=== PATIENT | female | born 1985 | race Caucasian/White ===

== ENCOUNTER → 2024-07-05 11:40 | Outpatient (BNVA) | payer MEDICAID, SELFPAY | PROVIDERS: Referring Provider Nurse Practitioner; Visit Provider Internal Medicine | DX: E11.9 Type 2 diabetes mellitus without complications (principal) | CPT/HCPCS: 36415; 80053; 80061; 81001; 82044; 83036 ==

== ENCOUNTER 2024-12-25 13:54 | Outpatient (CLI) | payer OTHER, MEDICAID, SELFPAY ==
--- NOTE | 2024-12-25 | MM_ITS ---
WS: [id number] DIAGNOSTIC BILATERAL DIGITAL BREAST TOMOSYNTHESIS MAMMOGRAPHY WITH CAD LEFT breast ultrasound, limited HISTORY: LEFT BREAST LUMP COMPARISON: None available. TECHNIQUE: Bilateral craniocaudad, mediolateral oblique, and mediolateral views are submitted with tomosynthesis and SM. Spot compression LEFT CC and MLO. Computer aided detection utilized. Breast composition: There are scattered areas of fibroglandular density. High density lobulated mass measures 1.8 x 2.1 x 2.4 cm in the mid LEFT breast, central and just medial to the nipple line. Mass estimated to be at 10:00. This does correspond to the palpable abnormality. No additional abnormality. LEFT breast ultrasound, limited. Hypoechoic mass with lobulated margins and no through transmission present at 11:00, 5 cm from the nipple. Mass measures 1.7 x 1.5 x 2.3 cm and corresponds to the mammographic abnormality. There is mild peripheral increased vascularity. MM/MM diag BI tomosynthesis [id number] IMPRESSION: BI-RADS: 4 - Suspicious Finding - Biopsy Should Be Considered. FOLLOW UP: Biopsy Recommended Ultrasound-guided biopsy recommended LEFT breast mass at 11:00. Notified Cathy Sanches at 12/25/2024 3:10 PM.
--- NOTE | 2024-12-25 14:12 | US_ITS ---
WS: [id number] DIAGNOSTIC BILATERAL DIGITAL BREAST TOMOSYNTHESIS MAMMOGRAPHY WITH CAD LEFT breast ultrasound, limited HISTORY: LEFT BREAST LUMP COMPARISON: None available. TECHNIQUE: Bilateral craniocaudad, mediolateral oblique, and mediolateral views are submitted with tomosynthesis and SM. Spot compression LEFT CC and MLO. Computer aided detection utilized. Breast composition: There are scattered areas of fibroglandular density. High density lobulated mass measures 1.8 x 2.1 x 2.4 cm in the mid LEFT breast, central and just medial to the nipple line. Mass estimated to be at 10:00. This does correspond to the palpable abnormality. No additional abnormality. LEFT breast ultrasound, limited. Hypoechoic mass with lobulated margins and no through transmission present at 11:00, 5 cm from the nipple. Mass measures 1.7 x 1.5 x 2.3 cm and corresponds to the mammographic abnormality. There is mild peripheral increased vascularity. US/US breast LT limited* [id number] IMPRESSION: BI-RADS: 4 - Suspicious Finding - Biopsy Should Be Considered. FOLLOW UP: Biopsy Recommended Ultrasound-guided biopsy recommended LEFT breast mass at 11:00. Notified Cathy Sanches at 12/25/2024 3:10 PM.
== END 2024-12-25 13:55 | disposition home or self-care (01) ==
LOC: RAD 13:57
PROVIDERS: PCP Nurse Practitioner Family; Visit Provider Nurse Practitioner Family
DX: N63.20 Unspecified lump in the left breast, unspecified quadrant (principal); S99.911A Unspecified injury of right ankle, initial encounter; X58.XXXA Exposure to other specified factors, initial encounter; M79.671 Pain in right foot; R92.323 Mammographic fibroglandular density, bilateral breasts; N63.22 Unspecified lump in the left breast, upper inner quadrant
CPT/HCPCS: 73610; 73630; 76642; 77062; G0279

== ENCOUNTER 2025-01-23 12:30 | Outpatient (CLI) | payer OTHER, MEDICAID, SELFPAY ==
--- NOTE | 2025-01-23 12:38 | US_ITS ---
WS: [id number] ULTRASOUND-GUIDED LEFT BREAST BIOPSY HISTORY: MASS/LUMP IN L BREAST SEEN ON MAMMOGRAM COMPARISON: 12/25/2024 Procedure, risks and complications are explained to the patient. Medications are reviewed. Consent is obtained. The mass in the LEFT breast is localized with ultrasound. Mass localizes to 11:00, 5 cm from the nipple. Skin is cleansed with ChloraPrep and anesthetized with 1% buffered lidocaine. Small dermatome is made. Under sterile conditions mass is biopsied with a 14-gauge Achieve needle. Multiple core biopsies are performed. Material placed in formalin and sent to pathology for review. No complications encountered. Breast tissue marker ([place] ultrasound enhanced ribbon): Single. Patient left the radiology suite with no complications. Patient is instructed [place] [facility] [place] call with any concerns. US/[place] [id number] IMPRESSION: 1. Uncomplicated core needle biopsy LEFT breast mass at 11:00. 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 RECOMMENDATION: Follow-up ultrasound LEFT breast 6 months. Imaging and pathology findings are concordant. Recommend follow-up in 6 months. If this mass increases in size or becomes painful surgical excision may be a c onsideration due to its large size.
== END 2025-01-23 12:31 | disposition home or self-care (01) ==
PROVIDERS: PCP Nurse Practitioner Family; Visit Provider Nurse Practitioner Family
DX: R92.8 Other abnormal and inconclusive findings on diagnostic imaging of breast (principal); N64.89 Other specified disorders of breast
CPT/HCPCS: 19083; 88305

== ENCOUNTER 2025-03-18 16:52 | Emergency (ER) | payer OTHER, MEDICAID, SELFPAY ==
[2025-03-18 16:57] VITALS: BP 137/95; PULSE 99; RESP 17; TEMP 36.7; O2SAT 96; BMI 35.4
[2025-03-18 18:31] LABS: Basophils # 0.1 10^3/uL (0.0-0.1); Basophils % 0.7 %; Eosinophils # 0.1 10^3/uL (0.0-0.8); Eosinophils % 1.1 %; Hematocrit 37.9 % (36-47); Lymphocytes # 4.7 10^3/uL (0.8-4.8); Lymphocytes % 51.2 %; Mean Corpuscular HGB Conc 35.1 g/dL (30-55); Mean Corpuscular Hemoglobin 34.6 pg (27-33); Mean Corpuscular Volume 98.7 fl (85-98); Mean Platelet Volume 9.7 fL (7.4-10.4); Monocytes # 0.4 10^3/uL (0.2-0.9); Monocytes % 4.8 %; Neutrophils # 3.79 10^3/uL (1.8-7.7); Neutrophils % 41.8 %; Nucleated Red Blood Cells % 0 %; Platelet Count 314 10^3/cmm (157-399); Red Blood Count 3.84 10^6/uL (3.85-5.65); Red Cell Distribution Width 11.8 % (12.1-15.1); White Blood Count 9.08 10^3/uL (3.29-11.43)
[2025-03-18 18:46] LABS: HCG, Serum Qual Negative (Negative)
[2025-03-18 18:50] LABS: Alanine Aminotransferase 12 U/L (0-33); Albumin Level 4.4 g/dL (3.5-5.2); Alkaline Phosphatase 87 U/L (35-105); Anion Gap 17.2 (5-19); Aspartate Amino Transferase 15 U/L (0-32); Blood Urea Nitrogen 6 mg/dL (6-20); Calcium 9.2 mg/dL (8.5-10.5); Carbon Dioxide 26 mmol/L (22-29); Chloride 103 mmol/L (98-107); Creatinine Clr Calc Pharmacy 99.9447; Glomerular Filtration Rate 79.4 mL/min (90-130); Glucose 165 mg/dL (65-115); Lipase 17 U/L (13-60); Osmolality Calculated 295 mOsm/kg (285-295); Potassium 4.2 mmol/L (3.5-5.1); Sodium 142 mmol/L (136-145); Total Bilirubin 0.2 mg/dL (0.15-1.2); Total Protein 7.4 g/dL (6.6-8.7)
[2025-03-18 19:30] VITALS: BP 117/71; PULSE 71; O2SAT 96
--- NOTE | 2025-03-18 19:40 | CTR_ITS ---
PROCEDURE INFORMATION: Exam: CT Abdomen And Pelvis With Contrast Exam date and time: 03/18/2025 8:10 PM Age: 39 years old Clinical indication: Abdominal pain; Other: Hernia site; Prior surgery; Surgery date: 6+ months; Surgery type: Hernia repair x4; Additional info: Abd pain with hernia TECHNIQUE: Imaging protocol: Computed tomography of the abdomen and pelvis with contrast. Radiation optimization: All CT scans at this facility use at least one of these dose optimization techniques: automated exposure control; mA and/or kV adjustment per patient size (includes targeted exams where dose is matched to clinical indication); or iterative reconstruction. Contrast material: OMNI 350; Contrast volume: 100 ml; Contrast route: INTRAVENOUS (IV); COMPARISON: No relevant prior studies available. RADIATION DOSE METRICS: Total DLP (mGy-cm): 858.2 FINDINGS: Lungs: Lung bases are clear. No pleural effusion. Liver: Normal. No mass. Gallbladder and biliary ducts: Normal. No calcified stones. No ductal dilation. Pancreas: Normal. No ductal dilation. Spleen: Normal. No splenomegaly. Adrenal glands: Normal. No mass. Kidneys and ureters: Normal. No hydronephrosis. Stomach and bowel: A large hernia involves the upper anterior abdominal wall and contains transverse colon. I see no bowel distension. Appendix: No evidence of appendicitis. Intraperitoneal space: Unremarkable. No free air. No significant fluid collection. Vasculature: Unremarkable. No abdominal aortic aneurysm. Lymph nodes: Unremarkable. No enlarged lymph nodes. Urinary bladder: Unremarkable as visualized. Reproductive: Unremarkable as visualized. Bones/joints: Unremarkable. No acute fracture. Soft tissues: Unremarkable. CT/CT abdomen pelvis w con* [id number] IMPRESSION: 1. No acute findings. 2. Large anterior abdominal wall hernia containing transverse colon. No sign of incarceration or strangulation
[2025-03-18 19:46] LABS: Bilirubin Urine Negative (Negative); Blood Urine Negative (Negative); Glucose Urine UA Negative (Normal); Ketones Urine Negative (Negative); Leukocyte Esterase Urine Negative (Negative); Nitrate Urine Negative (Negative); Protein Urine Negative (Negative); Specific Gravity, Urine 1.005 (1.005-1.030); Urine Appearance Clear (CLEAR); Urobilinogen Urine 0.2 mg/dL (Negative)
[2025-03-18] MEDS: ondansetron 2 mg/ML SDV 2 mL 4 MG IVP (19:49)
--- NOTE | 2025-03-18 19:49 | W.ED.ABDPA2 ---
HPI - Abdominal Pain General: Chief Complaint: Abdominal Pain Stated Complaint: dr davis, bowel movent trouble, abdominal hernia Time Seen by Provider: 03/18/25 19:11 History of Present Illness: Patient is 39-year-old female that presents to the ED with nausea and vomiting. She has association of abdominal pain. This is more located where she has a known hernia, that she states is worse than normal. She has constipation with her stools. She has not had a stool since yesterday. She states sometimes it is a week, however this is acute symptoms with her abdominal pain, and association of nausea, and vomiting. Denies any fevers. No sick contact. She cannot keep down her medications. Associated Symptoms: Reports constipation, nausea and vomiting; Denies change in stool character, chills and fever(s) Related Data Home Medications ?Medication ?Instructions ?Recorded ?Confirmed quetiapine 200 mg tablet mg PO 07/05/24 12/25/24 spironolactone 25 mg tablet mg PO 07/05/24 12/25/24 Previous Rx's ?Medication ?Instructions ?Recorded blood-glucose,director speech language,cont #1 ea 07/23/24 (Dexcom G7 Registered Public Health Nurse) pen needle, diabetic 32 gauge x #100 ea 08/09/24 (Comfort EZ Pen [place]) pregabalin 25 mg capsule (Lyrica) 25 mg PO BID #180 caps 10/02/24 blood-glucose sensor (Dexcom G7 #3 ea 11/12/24 Sensor device) insulin glargine 100 unit/mL (3 See Rx Instructions .Route 11/19/24 mL) subcutaneous pen (Lantus .COMPLEX #3 mL Solostar U-100 Insulin) CAM boot #1 ea 12/25/24 lactulose 10 gram/15 mL oral 10 g (15 mL) PO BID #473 mL 03/18/25 solution linaclotide 145 mcg capsule 145 mcg PO DAILY #30 caps 03/18/25 (Linzess) Allergies Allergy/AdvReac Type Severity Reaction Status Date / Time doxycycline Allergy Unknown Verified 12/25/24 10:33 Review of Systems General: Reports: 10 or more systems reviewed and unremarkable except in HPI and below Const: Denies: fever(s) or chills Eyes: Denies: change in vision or blurry vision ENMT: Denies: throat pain or mouth pain Card: Denies: chest pain or palpitations Resp: Denies: dyspnea or productive cough GI: Reports: abdominal pain, nausea, vomiting, constipation and pain on defecation; Denies: change in stool character : Denies: flank pain or difficulty voiding Musc: Denies: neck pain, back pain or extremity pain Skin/Breast: Denies: rash or pruritus Neuro: Denies: headache(s) or numbness in extremities Psych: Denies: anxiety or depression PFSH ED PFSH: Social History Smoking and tobacco/nicotine status: never used tobacco/nicotine Physical Exam Const: COMMON NORMALS: no acute distress, average body habitus and patient oriented x3 GENERAL APPEARANCE: cooperative and well kempt ORIENTATION/CONSCIOUSNESS: Yes awake, Yes oriented to person and Yes oriented to place HENMT: COMMON NORMALS: normocephalic and atraumatic HEAD & SCALP: normocephalic and atraumatic Neck/C-Spine: COMMON NORMALS: full ROM and no lymphadenopathy Lymph: LYMPHATIC: no lymphadenopathy noted Chest: COMMONS NORMALS: normal inspection of the chest and normal palpation of entire chest wall Resp: COMMON NORMALS: normal respiratory effort, No retractions and clear to auscultation bilaterally EFFORT & INSPECTION: Yes able to speak in complete sentences AUSCULTATION: clear to auscultation bilaterally GI: COMMON NORMALS: Soft to palpation (semi) and no bruits INSPECTION: Yes abdominal distension and Yes Localized GI swelling present (hernia) AUSCULTATION: Yes Hypoactive bowel sounds present PALPATION: Yes Soft to palpation (semi), Yes Tenderness to palpation present (GI) Details: LLQ and LUQ and Yes Guarding due to palpation present (GI) other (midline left large hernia with associated pain and guarding) GI image (female):  1. hernia 2. midline scar from previous failed hernia repair : COMMON NORMALS: Yes no CVA tenderness BLADDER/KIDNEY EXAM: Yes no CVA tenderness Back/Pelvis: COMMON NORMALS: no CVA tenderness Extremity: COMMON NORMALS: normal to inspection, full ROM and capillary refill normal Neuro: COMMON NORMALS: patient oriented x3 SENSORIUM/ORIENTATION: Yes oriented to person and Yes oriented to place Psych: APPEARANCE: Yes well kempt Skin: COMMON NORMALS: no rashes or lesions noted and no wounds GENERAL SKIN EXAM: no rashes or lesions noted Course Reevaluation(s): Reevaluation #1: Patient's nausea improved after Zofran. Awaiting CT. Vital Signs: Vital signs: Vital Signs Temperature 98.1 F 03/18/25 16:57 Pulse Rate 71 03/18/25 19:30 Respiratory Rate 17 03/18/25 16:57 Blood Pressure 117/71 03/18/25 19:30 Pulse Oximetry 96 03/18/25 19:30 Oxygen Delivery Me thod Room Air 03/18/25 16:57 MDM - Abdominal Pain Medical Decision Making Patient is a 39-year-old female large abdominal hernia with pain, nausea, vomiting, and constipation. Initially evaluation was to ensure there was not incarceration of her hernia. CT of the abdomen pelvis with contrast does not indicate incarceration. This is most likely due to obstipation potentially underlying gastroenteritis, however favor obstipation with her current symptoms. Will give her a dose of lactulose, however given her [address] home, she would like to take this at home. Will send lactulose to the pharmacy, instructed on probiotics on a daily basis, bowel regimen. Lab Data 03/18/25 18:13 03/18/25 18:13 Labs/Radiology: Radiology Impressions Abdomen/Pelvis CT 03/18/25 19:40 IMPRESSION: 1. No acute findings. 2. Large anterior abdominal wall hernia containing transverse colon. No sign of incarceration or strangulation Laboratory Results WBC 9.08 10^3/uL (3.29-11.43) 03/18/25 18:13 RBC 3.84 10^6/uL (3.85-5.65) L 03/18/25 18:13 Hgb 13.30 g/dL (11.27-16.99) 03/18/25 18:13 Hct 37.9 % (36-47) 03/18/25 18:13 MCV 98.7 fl (85-98) H 03/18/25 18:13 MCH 34.6 pg (27-33) H 03/18/25 18:13 MCHC 35.1 g/dL (30-55) 03/18/25 18:13 RDW 11.8 % (12.1-15.1) L 03/18/25 18:13 Plt Count 314 10^3/cmm (157-399) 03/18/25 18:13 MPV 9.7 fL (7.4-10.4) 03/18/25 18:13 Neut % (Auto) 41.8 % 03/18/25 18:13 Lymph % (Auto) 51.2 % 03/18/25 18:13 [place] % (Auto) 4.8 % 03/18/25 18:13 Eos % (Auto) 1.1 % 03/18/25 18:13 Baso % (Auto) 0.7 % 03/18/25 18:13 Neut # (Auto) 3.79 10^3/uL (1.8-7.7) 03/18/25 18:13 Lymph # (Auto) 4.7 10^3/uL (0.8-4.8) 03/18/25 18:13 [place] # (Auto) 0.4 10^3/uL (0.2-0.9) 03/18/25 18:13 Eos # (Auto) 0.1 10^3/uL (0.0-0.8) 03/18/25 18:13 Baso # (Auto) 0.1 10^3/uL (0.0-0.1) 03/18/25 18:13 Nucleated RBC % (auto) 0 % 03/18/25 18:13 Nucleated RBCs # 0.0 /100WBC 03/18/25 18:13 Sodium 142 mmol/L (136-145) 03/18/25 18:13 Potassium 4.2 mmol/L (3.5-5.1) 03/18/25 18:13 Chloride 103 mmol/L (98-107) 03/18/25 18:13 Carbon Dioxide 26 mmol/L (22-29) 03/18/25 18:13 Anion Gap 17.2 (5-19) 03/18/25 18:13 BUN 6 mg/dL (6-20) 03/18/25 18:13 Creatinine 0.8 mg/dL (0.5-0.9) 03/18/25 18:13 GFR Calculation 79.4 mL/min (90-130) L 03/18/25 18:13 Glucose 165 mg/dL (65-115) H 03/18/25 18:13 Calculated Osmolality 295 mOsm/kg (285-295) 03/18/25 18:13 Lactic Acid 0.9 mmol/L (0.5-2.2) 03/18/25 18:13 Calcium 9.2 mg/dL (8.5-10.5) 03/18/25 18:13 Total Bilirubin 0.2 mg/dL (0.15-1.2) 03/18/25 18:13 AST 15 U/L (0-32) 03/18/25 18:13 ALT 12 U/L (0-33) 03/18/25 18:13 Alkaline Phosphatase 87 U/L (35-105) 03/18/25 18:13 Total Protein 7.4 g/dL (6.6-8.7) 03/18/25 18:13 Albumin 4.4 g/dL (3.5-5.2) 03/18/25 18:13 Globulin 3.0 g/dL (1.3-4.6) 03/18/25 18:13 Lipase 17 U/L (13-60) 03/18/25 18:13 HCG, Qual Negative (Negative) 03/18/25 18:13 Urine Color [place] (Yellow) A 03/18/25 18:10 Urine Appearance Clear (CLEAR) 03/18/25 18:10 Urine pH 6.0 (5-7) 03/18/25 18:10 Ur Specific [place] 1.005 (1.005-1.030) 03/18/25 18:10 Urine Protein Negative (Negative) 03/18/25 18:10 Urine Glucose (UA) Negative (Normal) 03/18/25 18:10 Urine Ketones Negative (Negative) 03/18/25 18:10 Urine Blood Negative (Negative) 03/18/25 18:10 Urine Nitrate Negative (Negative) 03/18/25 18:10 Urine Bilirubin Negative (Negative) 03/18/25 18:10 Urine Urobilinogen 0.2 mg/dL (Negative) 03/18/25 18:10 Ur Leukocyte Esterase Negative (Negative) 03/18/25 18:10 Urine RBC 0-2 /hpf (0-2) 03/18/25 18:10 Urine WBC 0-5 /hpf (0-5) 03/18/25 18:10 Ur Squamous Epith Cells 0-5 /hpf (0-5) 03/18/25 18:10 Amorphous Sediment Not Reportable 03/18/25 18:10 Urine Bacteria None seen /hpf (NONE) 03/18/25 18:10 Hyaline Casts 0-4 /lpf H 03/18/25 18:10 All radiology interpretation(s) finalized by discharge ED provider radiology interpretation(s): no acute, hernia without incarceration Discharge Plan Discharge Patient Disposition: Home Clinical Impression: Constipation Qualifiers: Constipation type: chronic idiopathic constipation Qualified Code(s): K59.04 - Chronic idiopathic constipation Abdominal pain Qualifiers: Abdominal location: left lower quadrant Qualified Code(s): R10.32 - Left lower quadrant pain Abdominal hernia without obstruction and without gangrene Qualifiers: Hernia type: ventral Qualified Code(s): K43.9 - Ventral hernia without obstruction or gangrene Condition: Stable Prescriptions: New Linzess 145 mcg capsule 145 mcg PO DAILY Qty: 30 0RF lactulose 10 gram/15 mL solution 10 g PO BID Qty: 473 0RF No Action (DME) CAM boot See Rx Instructions .Route .MEDSUPPLY Qty: 1 0RF Rx Instructions: As directed to HOME spironolactone 25 mg tablet PO quetiapine 200 mg tablet PO (DME) Dexcom G7 Registered Public Health Nurse Misc See Rx Instructions .Route Qty: 1 0RF Rx Instructions: As directed (DME) pen needle, diabetic [Comfort EZ Pen [place]] 32 gauge x 5/32 needle See Rx Instructions .Route Qty: 100 1RF Rx Instructions: As directed pregabalin [Lyrica] 25 mg capsule 25 mg PO BID Qty: 180 0RF (DME) Dexcom G7 Sensor Device See Rx Instructions .ROUTE .COMPLEX Qty: 3 0RF Dose Instruction: CHANGE sensor EVERY 10 DAYS TO test blood sugar Rx Instructions: CHANGE sensor EVERY 10 DAYS TO test blood sugar insulin glargine [Lantus Solostar U-100 Insulin] 100 unit/mL (3 mL) insulin pen See Rx Instructions .ROUTE .COMPLEX Qty: 3 0RF Dose Instruction: INJECT 34 UNITS SUBCUTANEOUSLY DAILY, INCREASE ONE TO THREE UNITS UNTIL FASTING GLUCOSE IS 140 OR LESS. MAX DAILY AMOUNT OF 60 UNITS Rx Instructions: INJECT 34 UNITS SUBCUTANEOUSLY DAILY, INCREASE ONE TO THREE UNITS UNTIL FASTING GLUCOSE IS 140 OR LESS. MAX DAILY AMOUNT OF 60 UNITS Discharge Orders: Discharge ED (Routine); Ordered 06/16/25 Ordered By: Colleen Shirley Referrals: Cathy Sanches [Primary Care Provider] Discharge Diet: Full LIquid Patient Instructions: Constipation (ED), Abdominal Pain (ED) Activity Restrictions/Additional Instructions: You have been prescribed Linzess which will help with your daily constipation. Add a probiotic to your daily regimen x 2. Lactulose has been sent to the pharmacy. You will be given a dose to start at home tonight. [id number] choices for your constipation: Senna S times 2 at night, MiraLAX, follow the bottle directions at night. Milk of magnesia dosage in the AM. And try another bottle of magnesium citrate. Return to ED for ongoing issues with abdominal pain, constipation, inability to have bowel movement Stand Alone Forms: Work/School Release Print Language: [place]i Coding Level of Care Code ED Spraying Machine Operator for Dory Gomez
[2025-03-18] MEDS: sodium chloride 0.9% 1,000 ML 999 ML IV (19:50)
[2025-03-18 19:52] LABS: HCG Qualitative Urine. Negative (Negative)
[2025-03-18 19:52] LABS: Add Urine Microscopic? YES; Bacteria Urine None Seen /hpf; Hyaline Casts Urine 0-4 /lpf; RBC Urine 0-2 /hpf (0-2); Squamous Epithelial Cell Urine 0-5 /hpf (0-5); Urine Color Orange (Yellow); WBC Urine 0-5 /hpf (0-5)
[2025-03-18 20:03] LABS: Lactic Sepsis W/Reflex 0.9 mmol/L (0.5-2.2)
[2025-03-18] MEDS: iohexol 350 mg/mL 500 mL Btl (per mL) IV (20:19)
[2025-03-18] MEDS: lactulose oral liq 20 gm/30 mL UDC 30 GM PO (21:26)
[2025-03-19 00:02] VITALS: BP 120/71; PULSE 81; O2SAT 96
== END 2025-03-19 00:03 | disposition home or self-care (01) ==
PROVIDERS: Emergency Medicine; Emergency Provider Physician Assistant; PCP Nurse Practitioner Family
DX: K59.04 Chronic idiopathic constipation (principal); R10.32 Left lower quadrant pain; K43.9 Ventral hernia without obstruction or gangrene; Z79.4 Long term (current) use of insulin
CPT/HCPCS: 36415; 74177; 80053; 81001; 81025; 83605; 83690; 84703; 85025; 96361; 96374; 99285; J2405; J7030; J9999

== ENCOUNTER 2025-09-02 08:39 | Outpatient (CLI) | payer MEDICAID, SELFPAY ==
--- NOTE | 2025-09-02 08:44 | US_ITS ---
WS: [id number] ULTRASOUND LEFT BREAST, limited HISTORY: LUMP IN THE L BREAST, 6-month follow-up biopsy 01/23/2025 COMPARISON: 01/23/2025, 12/25/2024 TECHNIQUE: 2-D and Doppler. Previously biopsied mass in the LEFT breast is identified and similar in size. This is a solid mass slightly lobulated margins measuring 1.6 x 1.6 x 1.4 cm. Biopsy clip is present. No obvious increase in size. US/US breast LT limited* [id number] IMPRESSION: BI-RADS: 2- Benign FOLLOW-UP: See Report LEFT breast mass at 11:00 was previously biopsied and reported as a fibroadenom a by pathology which is concordant with imaging findings. Consider surgical stephanie luation and possible removal due to the large size and the lobulated margins. U ltrasound-guided biopsy can only biopsy limited areas of this mass. Favor this is probably a fibroadenoma but due to some of the features consider surgical ex cision to evaluate the entire lesion.
== END 2025-09-02 08:40 | disposition home or self-care (01) ==
LOC: RAD 08:40
PROVIDERS: PCP Nurse Practitioner Family; Visit Provider Nurse Practitioner Family
DX: N63.21 Unspecified lump in the left breast, upper outer quadrant (principal)
CPT/HCPCS: 76642